=== PATIENT | female | born 2000 | race African-American/Black ===

== ENCOUNTER 2024-09-20 14:38 | Emergency (ER) | payer OTHER, SELFPAY ==
--- NOTE | ~2024-09-20 | US_ITS ---
EXAMINATION: US , LIMITED CLINICAL INFORMATION: Abdominal cramping, decreased movements. COMPARISON: None available. TECHNIQUE: Transabdominal examination. FINDINGS/ US/US OB limited IMPRESSION: Very limited transabdominal examination only targeted for evaluation of the heart rate. Of note, this examination was not tailored for evaluation of the or placental anatomy, nor evaluation of growth, amniotic fluid or calculation of gestational age. Single intrauterine gestation with cephalic positioning. heart rate of 149 beats per minutes. Electronically signed by: Xochitl Gaviria MD 09/20/2024 04:35 PM EDT
[2024-09-20 14:40] VITALS: BP 120/75; PULSE 81; RESP 18; TEMP 36; O2SAT 100; BMI 39.7
--- NOTE | 2024-09-20 14:41 | ED_ITS ---
HPI - General Adult General Chief complaint: OB Stated complaint: Cramping, baby not moving Time Seen by Provider: 09/20/24 16:54 Source: patient Mode of arrival: ambulatory Limitations: no limitations History of Present Illness ED Provider: Abdias Orr PA-C HPI narrative: 24-year-old female with no past medical history presents to ED for 2 days of lower abdominal cramping for the past 2 days and thinking baby is moving less than usuall. Patient last had abdominal cramping yesterday. Patient states today no abdominal pain just came to have the baby evaluated. Patient denies any vaginal discharge, vaginal bleeding, flank pain, vaginal lesions, or recent trauma. Related Data Allergies Allergy/AdvReac Type Severity Reaction Status Date / Time No Known Allergies Allergy Verified 09/20/24 14:41 Review of Systems 2 Review of Systems: resolved lower abdominal cramping Yes all other systems are reviewed and are negative [facility] Social History Social History Smoked in Last 30 Days: No Use of substances other than those prescribed or required for medical reasons: No Advance Directives: No Advance Directives Information Provided: No Patient : Yes Physical Exam ED Vital Signs: Vital Signs - 24 hr 09/20/24 14:40 09/20/24 16:06 09/20/24 18:00 Temperature 96.8 F 98.6 F 98.5 F Pulse Rate 81 89 83 Respiratory Rate 18 16 16 Blood Pressure 120/75 112/56 L 117/65 Pulse Oximetry 100 99 100 Oxygen Delivery Method Room Air Room Air Room Air 09/20/24 19:01 Temperature 98.5 F Pulse Rate 83 Respiratory Rate 16 Blood Pressure 117/65 Pulse Oximetry 100 Oxygen Delivery Method Room Air BMI result Body Mass Index 39.7 Const General: cooperative, healthy appearing, comfortable, no acute distress, well developed, alert, awake and Physically active Orientation/consciousness: patient oriented x3 HENMT Head: Yes normal to inspection, Yes No palpable skull fracture present, Yes normocephalic and Yes atraumatic Eyes General: appearance normal, both eyes and all related structures Neck Neck: Yes normal visual inspection, Yes full ROM, Yes no lymphadenopathy, Yes no meningeal signs, Yes trachea midline, No anterior neck swelling and No tender Chest Chest palpation & inspection: normal inspection of the chest and normal palpation of entire chest wall Resp Effort & Inspection: normal respiratory effort and able to speak in complete sentences Auscultation: clear to auscultation bilaterally Cardio Jugular venous distension: no JVD Heart sounds: S1 normal heart sound present and S2 normal heart sound present GI Other: Inspection: Yes normal to inspection Palpation (GI): Soft to palpation, not firm, nontender, no guarding and not rigid Other: Negative for any vaginal discharge or vaginal bleeding. Cervical os is closed. Negative for effacement or dilation. Negative for CMT or adnexal tenderness General: No CVA tenderness and Yes no CVA tenderness Back/Spine/Pelvis Back: no CVA tenderness, No CVA tenderness and No back tenderness Skin General skin exam: no rashes or lesions noted and elasticity normal Neuro General: patient oriented x3, gait normal, tone normal, moves all extremities, Normal light touch and pain sensation, no meningeal signs, no focal motor deficits, CN's II-XI intact bilaterally and normal sensation to monofilament Extrem General: Yes normal to inspection, Yes full ROM and Yes capillary refill normal Psych Appearance: grossly normal, well kempt and not disheveled Course Course Course Narrative: This is a Rapid Medical Examination (RME) performed by Pat Estevez PA-C in triage. Full HPI, ROS, assessment and treatment plan per primary provider in the Main ED. 24 yo female currently 29 weeks follows with OB in [facility] here for eval of lower abdominal cramping x2 days. reports decreased movement today. reports baby is typically more active. denies vaginal bleeding/ discharge. has otherwise been going well. Plan: labs, hcg, ultrasound Medical Decision Making Medical Decision Making [facility] Narrative: 24-year-old female presents to the ED for lower abdominal cramping for the past 2 days that resolved. Patient last had lower abdominal cramping yesterday. Patient has no lower abdominal cramping or any abdominal pain today. Patient has no vaginal bleeding or vaginal discharge. Patient does came to the ED to be evaluated to make sure her baby is okay. Patient thought she felt the baby moving less. Abdominal exam is benign. Pelvic exam negative for vaginal bleeding or vaginal discharge. Cervical os negative for any effacement or dilation. Cervical os is closed. OB ultrasound stat shows IUP with heart tones of 149. [facility] trich BV swab sent. Case was discussed with the OBGYN on- call Dr. Pacheco who recommends patient be transferred to [facility] monitoring to rule out labor. Case was discussed with OBGYN Dr. Saint Wyatt of [facility] who agrees for patient to be sent to [facility] for evaluation. and patient is agreeable to go the [facility] with their own transportation. They were given copy of labs and images. Differential Diagnosis Differential Diagnoses: The differential diagnosis associated with the presentation includes ( demise, threatened , placenta previa, placenta abruptio) Admission/Observation Consideration of admission/observation: Escalation of care including admission/observation considered Consult Healthcare Provider Management of the patient was discussed with: Loom Checker (Dr. Pacheco of [facility] and Dr. Neal of [facility]) Lab Data MDM Lab Attestation statement: I reviewed the patient's lab results. 09/20/24 15:02 09/20/24 15:02 Labs: Lab Results 09/20/24 09/20/24 Range/Units 15:02 18:15 WBC 16.4 H (4.8-10.8) X10*3/uL RBC 4.03 L (4.20-5.50) X10*6/uL Hgb 12.9 (12.0-16.0) g/dl Hct 36.8 L (37.0-47.0) % MCV 91.3 (80.0-98.0) fL MCH 32.0 (27.0-33.0) pg MCHC 35.1 H (31.0-35.0) g/dl RDW 12.1 (11.0-16.0) % Plt Count 238 (160-400) X10*3/uL MPV 8.7 L (9.4-12.3) fL Immature Gran % (Auto) 1.2 H (0.0-0.4) % Neut % (Auto) 73.3 H (45-73) % Lymph % (Auto) 19.3 L (20-40) % [place] % (Auto) 4.4 (2-11) % Eos % (Auto) 1.4 (0-4) % Baso % (Auto) 0.4 (0-2) % Lymph # (Auto) 3.2 (1.2-4.9) X10*3/uL [place] # (Auto) 0.7 (0.1-1.2) X10*3/uL Eos # (Auto) 0.2 (0.0-0.4) X10*3/uL Baso # (Auto) 0.1 (0.0-0.2) X10*3/uL Abs Immat Gran (auto) 0.19 H (0.00-0.03) X10*3/uL Absolute Neuts (auto) 12.0 H (2.0-8.3) x10*3/uL Absolute Nucleated RBC 0.000 (0.0-0.012) X10*3/uL Nucleated RBC % (auto) 0.0 (0.0-0.2) /100WBC Sodium 138 (135-145) mmol/L Potassium 4.1 (3.3-5.1) mmol/L Chloride 107 (96-108) mmol/L Carbon Dioxide 24 (22-29) mmol/L Anion Gap 11 L (12-20) BUN 4 L (9-16) mg/dL Creatinine 0.60 (0.5-1.4) mg/dL Estim Creat Clear Calc 151.0 Estimated GFR > 60 Random Glucose 84 (60-115) mg/dL Calcium 9.6 (8.4-10.2) mg/dL Total Bilirubin 0.3 (0.0-1.0) mg/dL AST 12 (5-31) U/L ALT 9 (0-31) U/L Alkaline Phosphatase 82 (39-117) U/L Total Protein 6.9 (6.5-8.0) g/dL Albumin 3.8 (3.5-5.0) g/dL Beta HCG, Quant 99347 mIU/mL Urine Color Yellow Urine Appearance Clear Urine pH 6.5 (5.0-9.0) Ur Specific [place] 1.010 (1.005-1.025) Urine Protein Negative (Neg-Trace) mg/dL Urine Glucose (UA) Negative (Negative) mg/dL Urine Ketones Negative (Negative) mg/dL Urine Blood Negative (Negative) Urine Nitrite Negative (Negative) Ur Leukocyte Esterase Moderate (2+) H (Negative) Urine RBC 0-2 (0-2) /HPF Urine WBC 0-5 (0-5) /HPF Ur Squamous Epith Cells 6-10 (0-2) /HPF Urine Bacteria None Seen (None Seen) Hyaline Casts 0-2 (0-2) /LPF Independent Interpretation I performed an independent interpretation of an: Ultrasound Interpretation: [id number] [place] [address] Ultrasound Report Signed Patient: Cristo Holder MR#: [id number] : 2000 Acct:[id number] Age/Sex: 24 / F ADM Date: 09/20/24 Loc: HO.ED Attending Dr: Ordering Physician: Melissa Estevez Date of Service: 09/20/24 Procedure(s): US OB limited Accession Number(s): [id number] cc: Melissa Estevez~ EXAMINATION: US , LIMITED CLINICAL INFORMATION: Abdominal cramping, decreased movements. COMPARISON: None available. TECHNIQUE: Transabdominal examination. FINDINGS/ US/US OB limited IMPRESSION: Very limited transabdominal examination only targeted for evaluation of the heart rate. Of note, this examination was not tailored for evaluation of the or placental anatomy, nor evaluation of growth, amniotic fluid or calculation of gestational age. Single intrauterine gestation with cephalic positioning. heart rate of 149 beats per minutes. Electronically signed by: Xochitl Gaviria MD 09/20/2024 04:35 PM EDT Dictated By: Xochitl Gaviria Signed By: <Electronically signed by Xochitl Gaviria in OV> 09/20/24 1635 DD/ 1503 TD/TT: 09/20/24 1507 Balance Staff Staker: Independent Historian Clinical information obtained from an independent historian. History obtained from or confirmed by: Spouse () and Other (patient) Discharge Plan Discharge Clinical Impression: Abdominal pain during Patient Disposition: [facility] Transfer Details: [facility] Instructions: Abdominal Pain in (ED) Additional Instructions: You will be going to [facility] at [address] [place] [id number], [phone]. You will be going there for evaluation. Also recommend follow-up with your OBGYN. Return to the ED immediately for any abdominal pain, nausea, vomiting, cramping, vaginal discharge, vaginal bleeding, fever, chills, or any other concerning symptoms. Stand Alone Forms: Work/School Release Interventions: Acute Care Transfer Worksheet (ED) Last Done: 09/20/24 19:01 Discharge Date/Time: 09/20/24 19:02 Print Language: Latvian
[2024-09-20 15:05] LABS: MANUAL DIFF FLAG NO
[2024-09-20 15:07] LABS: Basophils Absolute Auto 0.1 X10*3/uL (0.0-0.2); Basophils Percent Auto 0.4 % (0-2); Eosinophils Absolute Auto 0.2 X10*3/uL (0.0-0.4); Eosinophils Percent Auto 1.4 % (0-4); Hematocrit 36.8 % (37.0-47.0); Hemoglobin 12.9 g/dl (12.0-16.0); Imm Gran Abs Auto 0.19 X10*3/uL (0.00-0.03); Imm Gran Pct Auto 1.2 % (0.0-0.4); Lymphocytes Absolute Auto 3.2 X10*3/uL (1.2-4.9); Lymphocytes Percent Auto 19.3 % (20-40); Mean Corpuscular HGB Conc 35.1 g/dl (31.0-35.0); Mean Corpuscular Volume 91.3 fL (80.0-98.0); Mean Platelet Volume 8.7 fL (9.4-12.3); Monocytes Absolute Auto 0.7 X10*3/uL (0.1-1.2); Monocytes Percent Auto 4.4 % (2-11); Neutrophils Percent Auto 73.3 % (45-73); Platelet Count 238 X10*3/uL (160-400); Red Blood Count 4.03 X10*6/uL (4.20-5.50); Red Cell Distribution Width 12.1 % (11.0-16.0); White Blood Count 16.4 X10*3/uL (4.8-10.8)
[2024-09-20 15:53] LABS: Alanine Aminotransferase 9 U/L (0-31); Albumin Level 3.8 g/dL (3.5-5.0); Alkaline Phosphatase 82 U/L (39-117); Anion Gap 11 (12-20); Aspartate Amino Transferase 12 U/L (5-31); Bilirubin Total 0.3 mg/dL (0.0-1.0); Blood Urea Nitrogen 4 mg/dL (9-16); Calcium 9.6 mg/dL (8.4-10.2); Carbon Dioxide 24 mmol/L (22-29); Chloride 107 mmol/L (96-108); Estimated Glomerular Filt Rate > 60; Glucose Random 84 mg/dL (60-115); HCG Quantitative 28496 mIU/mL; Potassium 4.1 mmol/L (3.3-5.1); Sodium 138 mmol/L (135-145); Total Protein 6.9 g/dL (6.5-8.0)
[2024-09-20 16:06] VITALS: BP 112/56; PULSE 89; RESP 16; TEMP 37; O2SAT 99
[2024-09-20 18:00] VITALS: BP 117/65; PULSE 83; RESP 16; TEMP 36.9; O2SAT 100
--- NOTE | 2024-09-20 18:06 | PC.NURSE ---
trich swab to be recollected, as collection stick was left in sample. Stick cannot be left in d/t bacteria adhere to stick, Jus CARMONA made aware, no need to reswab patient at this time, will reach out to OBGYN and readdress if needed.
[2024-09-20 18:23] LABS: Appearance Urine Clear; Color Urine Yellow; Glucose Urine UA Negative (Negative); Leukocyte Esterase Urine Moderate (2+) (Negative); Nitrite Urine Negative (Negative); PH 6.5 (5.0-9.0); UMIC TRIGGER UACC YES; Urine Blood Negative (Negative); Urine Ketones Negative (Negative); Urine Protein Negative (Neg-Trace)
[2024-09-20 18:31] LABS: Bacteria Urine None Seen (None Seen); Hyaline Casts Urine 0-2 /LPF (0-2); RBC Urine 0-2 /HPF (0-2); WBC Urine 0-5 /HPF (0-5)
[2024-09-20 19:01] VITALS: BP 117/65; PULSE 83; RESP 16; TEMP 36.9; O2SAT 100
--- NOTE | 2024-09-20 19:13 | P.CONOB_ITS ---
OB Consult Note - [facility] Data Service Date: 09/20/24 Primary Care Provider: Nonstaff Physician Олег Alexis was consulted at 17:55 on Cristo Granda who is a 24 year old at 29 weeks of gestation presented to the emergency room history of lower abdominal cramping of 2 days duration associated with decreased movements, no vaginal discharge or bleeding, no fever or chills no nausea or vomiting other concerns. Ultrasound in the emergency room Was done and showed the following: Very limited transabdominal examination only targeted for evaluation of the heart rate. Of note, this examination was not tailored for evaluation of the or placental anatomy, nor evaluation of growth, amniotic fluid or calculation of gestational age. Single intrauterine gestation with cephalic positioning. heart rate of 149 beats per minutes. OB [facility] Social History Social History Smoked in Last 30 Days: No Use of substances other than those prescribed or required for medical reasons: No Advance Directives: No Advance Directives Information Provided: No Patient : Yes Meds Allergies Allergy/AdvReac Type Severity Reaction Status Date / Time No Known Allergies Allergy Verified 09/20/24 14:41 OB Physical Exam Physical Exam Additional Comments: Exam reported by KRISTINE Saenz in the emergency room as the following: Abdomen: Soft to palpation, not firm, nontender, no guarding and not rigid Pelvic exam: Negative for any vaginal discharge or vaginal bleeding. Cervical os is closed. Negative for effacement or dilation. Negative for CMT or adnexal tenderness General: No CVA tenderness and Yes no CVA tenderness OB Consult Results Labs 09/20/24 15:02 09/20/24 15:02 Labs: Short CBC 09/20/24 Range/Units 15:02 WBC 16.4 H (4.8-10.8) X10*3/uL Hgb 12.9 (12.0-16.0) g/dl Hct 36.8 L (37.0-47.0) % Plt Count 238 (160-400) X10*3/uL BMP 09/20/24 15:02 Sodium 138 Potassium 4.1 Chloride 107 Carbon Dioxide 24 BUN 4 L Creatinine 0.60 Calcium 9.6 Liver Function 09/20/24 Range/Units 15:02 Total Bilirubin 0.3 (0.0-1.0) mg/dL AST 12 (5-31) U/L ALT 9 (0-31) U/L Alkaline Phosphatase 82 (39-117) U/L Albumin 3.8 (3.5-5.0) g/dL Urine 09/20/24 Range/Units 18:15 Urine Color Yellow Urine Appearance Clear Urine pH 6.5 (5.0-9.0) Ur Specific [place] 1.010 (1.005-1.025) Urine Protein Negative (Neg-Trace) mg/dL Urine Glucose (UA) Negative (Negative) mg/dL OB - CN: A/P Assessment and Plan (1) Abdominal pain during : Status: Acute Plan Recommended the following to near July, PA in the emergency: Transfer to [facility] urgently LEVI, since the patient needs to be placed on obstetrical monitor to rule out contractions and for heart rate tracing especially with decreased movement, since there is no message at [facility] with no monitors and no OB nurses available and I explained the urgency of the treatment situation. I spent a total of 20 minutes reviewing the chart communicating with the emergency room provider and documenting in the medical record Time Spent With Patient Time: Total time managing care of this patient today ____ minutes.
[2024-09-21 01:20] LABS: CT PCR NOT DETECTED (Not Detect.); NG PCR NOT DETECTED (Not Detect.)
[2024-09-21 11:47] LABS: Bacterial Vaginosis PCR POSITIVE (Negative); Candida Group PCR NOT DETECTED (Not Detect); Candida glab krusei PCR NOT DETECTED (Not Detect); Trichomonas vaginalis PCR NOT DETECTED (Not Detect)
== END 2024-09-20 19:02 | disposition short-term general hospital (02) ==
PROVIDERS: Physician Assistant; Physician Assistant Medical; Emergency Provider Emergency Medicine
DX: O36.8130 Decreased fetal movements, third trimester, not applicable or unspecified (principal); R25.2 Cramp and spasm; R10.2 Pelvic and perineal pain; N76.0 Acute vaginitis; Z3A.29 29 weeks gestation of pregnancy; Z79.899 Other long term (current) drug therapy
CPT/HCPCS: 0352U; 36415; 76815; 80053; 81001; 84702; 85025; 87491; 87591; 99285

== ENCOUNTER → 2024-09-20 14:53 | Outpatient (BNV) | payer OTHER, SELFPAY | PROVIDERS: Emergency Provider Emergency Medicine; Visit Provider Obstetrics & Gynecology | DX: O26.899 Other specified pregnancy related conditions, unspecified trimester (principal); R10.9 Unspecified abdominal pain | CPT/HCPCS: 99283 ==